=== PATIENT | male | born 1990 | race Hispanic/Latino ===

== ENCOUNTER 2016-07-31 15:04 | Emergency (ER) | payer OTHER ==
[~2016-07-31] VITALS: Ht 188 cm; Wt 73.6 kg
[2016-07-31] MEDS ORDERED: TESSALON PERLE100 MG PO (17:20)
[2016-07-31] MEDS ORDERED: PREDNISONE20 MG PO (17:20)
[2016-07-31] MEDS ORDERED: ZITHROMAX Z-PA250 MG PO (17:20)
[2016-07-31] MEDS ORDERED: ANTIVERT25 MG PO (17:21)
[2016-07-31] MEDS ORDERED: MUCINEX D ER T1 EACH PO (17:21)
[2016-07-31 17:35] VITALS: BP 106/58
== END 2016-07-31 17:36 | disposition home or self-care (01) ==
LOC: EME 15:04
DX: J18.0 Bronchopneumonia, unspecified organism (principal); J06.9 Acute upper respiratory infection, unspecified; H65.93 Unspecified nonsuppurative otitis media, bilateral
CPT/HCPCS: 71020; 94640; 99281; 99284

== ENCOUNTER 2016-11-07 22:19 | Emergency (ER) | payer OTHER ==
[~2016-11-07] VITALS: Ht 188 cm; Wt 75.0 kg
[~2016-11-07 22:19] MED LIST: ANTIVERT25 MG PO; MUCINEX D ER T1 EACH PO; PREDNISONE20 MG PO; TESSALON PERLE100 MG PO; ZITHROMAX Z-PA250 MG PO
[2016-11-07 23:55] LABS: EOSINOPHIL (%) 1.5 % (0-5); EOSINOPHIL COUNT 0.1 K/uL (0-0.3); HEMATOCRIT 37.1 % (38.0-50.0); IMMATURE GRANULOCYTE (%) 0.1 % (0.0-0.7); INSTRUMENT ABS NEUTROPHIL CT 3.7 K/uL; LYMPHOCYTE COUNT 3.1 K/uL (1.0-2.8); MCH 26.3 PG (29.0-34.0); MCHC 33.2 G/DL (30.0-36.0); MCV 79.3 FL (86-99); MEAN PLAT.VOLUME 10.9 uM^3 (9.0-12.4); MONOCYTE (%) 7.3 % (3-12); MONOCYTE COUNT 0.6 K/uL (0-0.8); NEUTROPHIL (%) 49.4 % (45-76); NEUTROPHIL COUNT 3.7 K/uL (1.8-6.4); PLATELET COUNT 147 K/uL (156-360); RBC DIS.WIDTH-CV 12.6 % (11.8-14.6); RBC DIS.WIDTH-SD 36.2 % (39-53); RED BLOOD COUNT 4.68 M/uL (4.00-5.50); WHITE BLOOD COUNT 7.5 K/uL (4.1-10.2)
[2016-11-08 00:04] LABS: CHLORIDE 105 mEq/L (99-109); POTASSIUM 3.3 mEq/L (3.7-5.4); SODIUM 138 mEq/L (136-147)
[2016-11-08 00:07] LABS: GLUCOSE 78 mg/dL (70-99)
[2016-11-08 00:08] LABS: ANION GAP 6 MEQ/L (2-14)
[2016-11-08 00:09] LABS: TOTAL BILIRUBIN 0.4 mg/dL (0.0-1.0)
[2016-11-08 00:10] LABS: ALKALINE PHOSPHATASE 56 IU/L (3-129); GFR ESTIMATE (CALCULATED) > 59 mL/min/
[2016-11-08 00:11] LABS: UREA NITROGEN (BUN) 11 mg/dL (9-23)
[2016-11-08 00:14] LABS: LIPASE 37 U/L (1.0-51.0)
[2016-11-08 01:15] LABS: ADD MIUA? NO; BILIRUBIN NEGATIVE; BLOOD NEGATIVE; COLOR STRAW ((YELLOW)); GLUCOSE (STRIP) NEGATIVE; KETONES NEGATIVE; LEUKOCYTES NEGATIVE; NITRITE NEGATIVE; PROTEIN (STRIP) NEGATIVE; UCUL ADDED? NO; UROBILINOGEN 0.2 MG/DL (0.2-1.0)
[2016-11-08] MEDS ORDERED: TRAMADOL HCL50 MG PO (02:27)
[2016-11-08 03:07] VITALS: BP 115/69
== END 2016-11-08 03:10 | disposition home or self-care (01) ==
LOC: EME → EDBD 22:19 → EME 22:19
PROVIDERS: Emergency Medicine
DX: S39.011A Strain of muscle, fascia and tendon of abdomen, initial encounter (principal); R33.9 Retention of urine, unspecified; N43.3 Hydrocele, unspecified; X50.0XXA Overexertion from strenuous movement or load, initial encounter
CPT/HCPCS: 74177; 76870; 80053; 81003; 83690; 85025; 99281; 99285; J2405; J3010; J7030

== ENCOUNTER 2016-12-24 12:45 | Emergency (ER) | payer OTHER ==
[~2016-12-24] VITALS: Ht 188 cm; Wt 69.9 kg
[~2016-12-24 12:45] MED LIST changes: +TRAMADOL HCL50 MG PO
[2016-12-24 12:50] VITALS: BP 119/74
[2016-12-24] MEDS ORDERED: ELIMITE 5% CREA60 GM TP (14:18)
[2016-12-24] MEDS ORDERED: NYSTATIN-TRIAMC15 GM TP (14:18)
[2016-12-24 14:25] LABS: ADD MIUA? YES; BILIRUBIN NEGATIVE; BLOOD NEGATIVE; COLOR YELLOW ((YELLOW)); GLUCOSE (STRIP) NEGATIVE; KETONES NEGATIVE; LEUKOCYTES NEGATIVE; NITRITE NEGATIVE; PROTEIN (STRIP) NEGATIVE; SPECIFIC GRAVITY 1.012 (1.000-1.030); UROBILINOGEN 0.2 MG/DL (0.2-1.0)
[2016-12-24 14:40] LABS: BACTERIA NONE SEEN /HPF; EPITHELIAL CELLS RARE /HPF; MUCUS TRACE /LPF; RED BLOOD CELLS 0-5 /HPF (0-5); UCUL ADDED? NO; WHITE BLOOD CELLS NONE SEEN /HPF (0-5)
[2016-12-25 13:11] LABS: TREPONEMA ANTIBODY NEGATIVE (NEGATIVE)
[2016-12-26 13:39] LABS: CHLAMYDIA TRACHOMATIS NEGATIVE; NEISSERIA GONORRHOEAE NEGATIVE
== END 2016-12-24 15:03 | disposition home or self-care (01) ==
LOC: EME 12:45
PROVIDERS: Physician Assistant
DX: B85.3 Phthiriasis (principal)
CPT/HCPCS: 81003; 86780; 87254; 87491; 87591; 99281; 99284